=== PATIENT | male | born 1990 | race Caucasian/White ===

== ENCOUNTER 2018-05-21 09:52 | Emergency (ER) | payer SELFPAY ==
[~2018-05-21] VITALS: Ht 172.7 cm; Wt 89.8 kg
[2018-05-21 10:23] VITALS: BP 142/88
== END 2018-05-21 11:21 | disposition home or self-care (01) ==
LOC: EDBD 09:58 → ER 09:58
DX: J20.9 Acute bronchitis, unspecified (principal); J03.90 Acute tonsillitis, unspecified
CPT/HCPCS: 71046

== ENCOUNTER 2023-01-18 08:12 | Emergency (ER) | payer MEDICAID ==
[~2023-01-18] VITALS: Ht 172.7 cm; Wt 94.5 kg
[2023-01-18 08:57] VITALS: BP 142/99; PULSE 70; RESP 18; TEMP 98.7; O2SAT 97
[2023-01-18] MEDS ORDERED: CLIN300C70 PO (09:05)
[2023-01-18] MEDS ORDERED: TRIA0.1O TOP (09:05)
== END 2023-01-18 09:14 | disposition home or self-care (01) ==
LOC: ER 08:12
DX: K04.7 Periapical abscess without sinus (principal); L20.9 Atopic dermatitis, unspecified; Z79.899 Other long term (current) drug therapy